=== PATIENT | male | born 1940 | race Caucasian/White ===

== ENCOUNTER 2019-12-04 08:58 | Inpatient (IN) ==
[2019-12-04] MEDS ORDERED: PIPERACILLIN/TAZOBACTAM 3,375 MG in SODIUM CHLORIDE 0.9% 100 ML IV STA (09:30)
[2019-12-04 10:21] LABS: Basophils % 0.3 % (0.0-0.8); Eosinophils # 0.1 10*3/uL (0.0-0.87); Eosinophils % 0.9 % (0.00-10.9); Hematocrit 34.2 VOL% (42.0-52.0); Hemoglobin 10.1 GM/DL (14.0-18.0); Immature Granulocytes % 0.8 %; Immature Granulocytes Absolute 0.09 #; Lymphocytes # 1.7 10*3/uL (1.4-4.0); Lymphocytes % 15.6 % (21.2-54.2); Mean Corpuscular HGB Conc 29.5 GM/DL (32-36); Mean Corpuscular Volume 84.9 FL (87-102); Mean Platelet Volume 8.2 FL (9.6-12.0); Monocytes % 6.9 % (1.7-12.7); Neutrophils % 75.5 % (38.7-73.9); Platelet Count 374 T/CUMM (130-400); Red Blood Count 4.03 MC/CUMM (3.8-5.5); Red Cell Distribution Width 14.8 % (9.3-17.3); White Blood Count 11.1 T/CUMM (4-12)
[2019-12-04 10:25] LABS: PT Patient Result 10.9 SECS (9.8-11.9)
[2019-12-04 10:35] LABS: Alanine Aminotransferase 19 U/L (16-61); Albumin 3.1 G/DL (3.4-5.0); Alkaline Phosphatase 98 U/L (45-117); Aspartate Amino Transferase 15 U/L (0-37); Bilirubin,Total < 0.39 MG/DL (0.2-1.0); Blood Urea Nitrogen 31 MG/DL (7-18); Calcium 9.9 MG/DL (8.5-10.1); Estimated Glom Filtration Rate 57 ML/MIN; Glucose 141 MG/DL (74-106); Osmolality,Calculated 283.7 MOS/KG (273-304); Total Protein 9.2 G/DL (6.4-8.3)
[2019-12-04 11:58] LABS: Apearance,Urine CLEAR (Clear); Bilirubin,Urine Negative (Negative); Blood, Urine Negative (Negative); Glucose,Urine (UA) Negative (Negative); Hyaline Casts,Urine 1 /LPF (0-3); Ketones,Urine Negative (Negative); Mucus,Urine Occasional /LPF (Occasional); Nitrite,Urine Negative (Negative); Protein,Urine Negative; RBC,Urine 6 /HPF (0-4); Squamous Epithelial Cell,Urine Occasional /HPF (0-10); Urine Color Yellow (Yellow); Urine Specific Gravity 1.016 (1.001-1.035); Urine Urobilinogen < 2.0 EU/DL (0.2-1.0); WBC,Urine <1 /HPF (0-6)
[2019-12-04] MEDS ORDERED: ACETAMINOPHEN 325 MG TABLET PO PRN (14:44)
[2019-12-04] MEDS ORDERED: GLUCAGON 1 MG VIAL IM PRN (14:44)
[2019-12-04] MEDS ORDERED: PROMETHAZINE 25 MG/1 ML VIAL IM PRN (14:44)
[2019-12-04] MEDS ORDERED: MAGNESIUM HYDROXIDE SUSP 30 ML UDCUP PO PRN (14:44)
[2019-12-04] MEDS ORDERED: ONDANSETRON 4 MG/2 ML VIAL IV PRN (14:44)
[2019-12-04] MEDS ORDERED: DEXTROSE 10% 250 ML BAG IV PRN (14:44)
[2019-12-04] MEDS: GABAPENTIN 300 MG CAPSULE PO SCH ×2 (15:56→21:01)
[2019-12-04] MEDS: PENTOXIFYLLINE 400 MG TABLET PO SCH ×2 (15:56→21:01)
[2019-12-04] MEDS: POLYVINYL ALCOHOL 1.4% OPH SOLN 15 ML BOTTLE BOTH EYES SCH ×2 (15:57→21:01)
[2019-12-04] MEDS: VANCOMYCIN INJ 1,250 MG in SODIUM CHLORIDE 0.9% 250 ML IV SCH (16:03)
[2019-12-04] MEDS: ASCORBIC ACID 500 MG TABLET PO SCH (21:00)
[2019-12-04] MEDS: carvediloL 12.5 MG TABLET PO SCH (21:00)
[2019-12-04] MEDS: DONEPEZIL 5 MG TABLET PO SCH (21:00)
[2019-12-04] MEDS: ATORVASTATIN 20 MG TABLET PO SCH (21:00)
[2019-12-04] MEDS: cilostazoL 50 MG TABLET PO SCH (21:01)
[2019-12-04] MEDS: DOCUSATE SODIUM 100 MG CAPSULE PO SCH (21:01)
[2019-12-04] MEDS: MELATONIN 3 MG TABLET PO SCH (21:01)
[2019-12-04] MEDS: PIPERACILLIN/TAZOBACTAM 3,375 MG in SODIUM CHLORIDE 0.9% 100 ML IV SCH (21:17)
[2019-12-05] MEDS: LACTATED RINGERS 1,000 ML IV SCH ×2 (00:29→09:29)
[2019-12-05] MEDS: VANCOMYCIN INJ 1,250 MG in SODIUM CHLORIDE 0.9% 250 ML IV SCH ×2 (03:34→17:07)
[2019-12-05] MEDS: PIPERACILLIN/TAZOBACTAM 3,375 MG in SODIUM CHLORIDE 0.9% 100 ML IV SCH ×3 (05:39→21:52)
[2019-12-05] MEDS ORDERED: LIDOCAINE 1%/EPI INJ 20 ML VIAL ONE (06:30)
[2019-12-05] MEDS ORDERED: BUPIVACAINE MPF 0.25% 30 ML VIAL ONE (06:30)
[2019-12-05] MEDS: ENOXAPARIN 40 MG/0.4 ML SYRINGE SUBCUT SCH (07:02)
[2019-12-05] MEDS ORDERED: PHENYLEPHRINE 1 MG/10 ML SYRINGE IV ONE (07:58)
[2019-12-05] MEDS ORDERED: SEVOFLURANE 1 UNIT/15 MINUTE INH ONE (07:58)
[2019-12-05] MEDS ORDERED: fentaNYL 100 MCG/2 ML VIAL ONE (07:58)
[2019-12-05] MEDS ORDERED: ETOMIDATE 40 MG/20 ML VIAL IV ONE (07:58)
[2019-12-05] MEDS ORDERED: propofoL 200 MG/20 ML VIAL IV ONE (07:58)
[2019-12-05] MEDS ORDERED: LIDOCAINE 1% 5 ML VIAL ONE (07:58)
[2019-12-05] MEDS ORDERED: DEXTROSE 10% 250 ML BAG IV PRN (08:43)
[2019-12-05] MEDS ORDERED: GLUCAGON 1 MG VIAL IM PRN (08:43)
[2019-12-05] MEDS: MULTIVITAMIN (CENTRUM) TABLET PO SCH (09:27)
[2019-12-05] MEDS: GABAPENTIN 300 MG CAPSULE PO SCH ×3 (09:27→21:50)
[2019-12-05] MEDS: cilostazoL 50 MG TABLET PO SCH ×2 (09:27→21:50)
[2019-12-05] MEDS: LACTULOSE 20 GM/30 ML UDCUP PO SCH (09:27)
[2019-12-05] MEDS: PENTOXIFYLLINE 400 MG TABLET PO SCH ×3 (09:27→21:55)
[2019-12-05] MEDS: ASPIRIN EC 81 MG TABLET PO SCH (09:28)
[2019-12-05] MEDS: PANTOPRAZOLE 40 MG TABLET PO SCH (09:28)
[2019-12-05] MEDS: TAMSULOSIN 0.4 MG CAPSULE PO SCH (09:28)
[2019-12-05] MEDS: DUTASTERIDE 0.5 MG CAPSULE PO SCH (09:28)
[2019-12-05] MEDS: DONEPEZIL 5 MG TABLET PO SCH ×2 (09:28→21:50)
[2019-12-05] MEDS: DOCUSATE SODIUM 100 MG CAPSULE PO SCH ×2 (09:28→21:50)
[2019-12-05] MEDS: ASCORBIC ACID 500 MG TABLET PO SCH ×2 (09:28→21:51)
[2019-12-05] MEDS: FERROUS SULFATE 325 MG TABLET PO SCH (09:28)
[2019-12-05] MEDS: carvediloL 12.5 MG TABLET PO SCH ×2 (09:28→21:49)
[2019-12-05] MEDS: POLYVINYL ALCOHOL 1.4% OPH SOLN 15 ML BOTTLE BOTH EYES SCH ×3 (09:29→22:08)
[2019-12-05] MEDS: INSULIN REGULAR 100 UNIT/ML SUBCUT SCH ×3 (12:45→22:08)
[2019-12-05] MEDS: MELATONIN 3 MG TABLET PO SCH (21:49)
[2019-12-05] MEDS: ATORVASTATIN 20 MG TABLET PO SCH (21:50)
[2019-12-06] MEDS: LACTATED RINGERS 1,000 ML IV SCH ×2 (01:07→13:20)
[2019-12-06] MEDS: VANCOMYCIN INJ 1,250 MG in SODIUM CHLORIDE 0.9% 250 ML IV SCH ×2 (04:12→16:28)
[2019-12-06] MEDS: PIPERACILLIN/TAZOBACTAM 3,375 MG in SODIUM CHLORIDE 0.9% 100 ML IV SCH ×3 (05:49→21:41)
[2019-12-06 05:54] LABS: Calcium 8.8 MG/DL (8.5-10.1); Osmolality,Calculated 286.5 MOS/KG (273-304)
[2019-12-06] MEDS: ENOXAPARIN 40 MG/0.4 ML SYRINGE SUBCUT SCH (06:03)
[2019-12-06] MEDS: HYDROmorphone 2 MG/1 ML VIAL IV PRN ×2 (08:09→12:57)
[2019-12-06] MEDS: carvediloL 12.5 MG TABLET PO SCH ×2 (08:46→21:24)
[2019-12-06] MEDS: TAMSULOSIN 0.4 MG CAPSULE PO SCH (08:46)
[2019-12-06] MEDS: PENTOXIFYLLINE 400 MG TABLET PO SCH ×3 (08:46→21:24)
[2019-12-06] MEDS: MULTIVITAMIN (CENTRUM) TABLET PO SCH (08:46)
[2019-12-06] MEDS: cilostazoL 50 MG TABLET PO SCH ×2 (08:46→21:24)
[2019-12-06] MEDS: ASPIRIN EC 81 MG TABLET PO SCH (08:46)
[2019-12-06] MEDS: DOCUSATE SODIUM 100 MG CAPSULE PO SCH ×2 (08:46→21:24)
[2019-12-06] MEDS: DONEPEZIL 5 MG TABLET PO SCH ×2 (08:47→21:24)
[2019-12-06] MEDS: DUTASTERIDE 0.5 MG CAPSULE PO SCH (08:47)
[2019-12-06] MEDS: LACTULOSE 20 GM/30 ML UDCUP PO SCH ×2 (08:47→08:58)
[2019-12-06] MEDS: INSULIN REGULAR 100 UNIT/ML SUBCUT SCH ×4 (08:47→21:25)
[2019-12-06] MEDS: PANTOPRAZOLE 40 MG TABLET PO SCH (08:47)
[2019-12-06] MEDS: FERROUS SULFATE 325 MG TABLET PO SCH (08:47)
[2019-12-06] MEDS: POLYVINYL ALCOHOL 1.4% OPH SOLN 15 ML BOTTLE BOTH EYES SCH ×3 (08:47→21:25)
[2019-12-06] MEDS: ASCORBIC ACID 500 MG TABLET PO SCH ×2 (08:47→21:26)
[2019-12-06] MEDS: GABAPENTIN 300 MG CAPSULE PO SCH ×3 (08:47→21:24)
[2019-12-06] MEDS: MELATONIN 3 MG TABLET PO SCH (21:24)
[2019-12-06] MEDS: ATORVASTATIN 20 MG TABLET PO SCH (21:24)
[2019-12-06] MEDS: INSULIN GLARGINE 100 UNIT/ML SUBCUT SCH (21:26)
[2019-12-07] MEDS: VANCOMYCIN INJ 1,250 MG in SODIUM CHLORIDE 0.9% 250 ML IV SCH ×2 (04:27→17:45)
[2019-12-07] MEDS: ENOXAPARIN 40 MG/0.4 ML SYRINGE SUBCUT SCH (06:15)
[2019-12-07] MEDS: PIPERACILLIN/TAZOBACTAM 3,375 MG in SODIUM CHLORIDE 0.9% 100 ML IV SCH ×3 (06:36→20:37)
[2019-12-07] MEDS: INSULIN REGULAR 100 UNIT/ML SUBCUT SCH ×4 (08:39→20:39)
[2019-12-07] MEDS: GABAPENTIN 300 MG CAPSULE PO SCH ×3 (08:40→20:38)
[2019-12-07] MEDS: ASPIRIN EC 81 MG TABLET PO SCH (08:40)
[2019-12-07] MEDS: PANTOPRAZOLE 40 MG TABLET PO SCH (08:40)
[2019-12-07] MEDS: DOCUSATE SODIUM 100 MG CAPSULE PO SCH ×2 (08:40→20:38)
[2019-12-07] MEDS: DUTASTERIDE 0.5 MG CAPSULE PO SCH (08:40)
[2019-12-07] MEDS: DONEPEZIL 5 MG TABLET PO SCH ×2 (08:40→20:38)
[2019-12-07] MEDS: MULTIVITAMIN (CENTRUM) TABLET PO SCH (08:40)
[2019-12-07] MEDS: FERROUS SULFATE 325 MG TABLET PO SCH (08:40)
[2019-12-07] MEDS: cilostazoL 50 MG TABLET PO SCH ×2 (08:40→20:38)
[2019-12-07] MEDS: ASCORBIC ACID 500 MG TABLET PO SCH ×2 (08:40→20:38)
[2019-12-07] MEDS: carvediloL 12.5 MG TABLET PO SCH ×2 (08:40→20:38)
[2019-12-07] MEDS: PENTOXIFYLLINE 400 MG TABLET PO SCH ×3 (08:40→20:38)
[2019-12-07] MEDS: LACTULOSE 20 GM/30 ML UDCUP PO SCH ×2 (08:40→08:54)
[2019-12-07] MEDS: POLYVINYL ALCOHOL 1.4% OPH SOLN 15 ML BOTTLE BOTH EYES SCH ×3 (08:41→20:38)
[2019-12-07] MEDS: TAMSULOSIN 0.4 MG CAPSULE PO SCH (08:42)
[2019-12-07] MEDS: MELATONIN 3 MG TABLET PO SCH (20:38)
[2019-12-07] MEDS: ATORVASTATIN 20 MG TABLET PO SCH (20:38)
[2019-12-07] MEDS: INSULIN GLARGINE 100 UNIT/ML SUBCUT SCH (20:39)
[2019-12-08 04:35] LABS: Basophils % 0.5 % (0.0-0.8); Eosinophils # 0.3 10*3/uL (0.0-0.87); Hemoglobin 8.6 GM/DL (14.0-18.0); Immature Granulocytes % 0.6 %; Immature Granulocytes Absolute 0.05 #; Lymphocytes # 2.1 10*3/uL (1.4-4.0); Mean Corpuscular HGB Conc 29.7 GM/DL (32-36); Mean Corpuscular Volume 84.3 FL (87-102); Mean Platelet Volume 8.2 FL (9.6-12.0); Monocytes % 7.9 % (1.7-12.7); Platelet Count 347 T/CUMM (130-400); Red Blood Count 3.44 MC/CUMM (3.8-5.5); Red Cell Distribution Width 14.8 % (9.3-17.3); White Blood Count 8.2 T/CUMM (4-12)
[2019-12-08] MEDS: VANCOMYCIN INJ 1,250 MG in SODIUM CHLORIDE 0.9% 250 ML IV SCH (04:38)
[2019-12-08 04:56] LABS: Calcium 8.6 MG/DL (8.5-10.1); Osmolality,Calculated 287.4 MOS/KG (273-304)
[2019-12-08] MEDS: ENOXAPARIN 40 MG/0.4 ML SYRINGE SUBCUT SCH (05:58)
[2019-12-08] MEDS: PIPERACILLIN/TAZOBACTAM 3,375 MG in SODIUM CHLORIDE 0.9% 100 ML IV SCH ×2 (06:34→15:33)
[2019-12-08] MEDS: MULTIVITAMIN (CENTRUM) TABLET PO SCH (09:48)
[2019-12-08] MEDS: ASPIRIN EC 81 MG TABLET PO SCH (09:48)
[2019-12-08] MEDS: TAMSULOSIN 0.4 MG CAPSULE PO SCH (09:48)
[2019-12-08] MEDS: DONEPEZIL 5 MG TABLET PO SCH (09:48)
[2019-12-08] MEDS: GABAPENTIN 300 MG CAPSULE PO SCH (09:48)
[2019-12-08] MEDS: ASCORBIC ACID 500 MG TABLET PO SCH (09:48)
[2019-12-08] MEDS: DOCUSATE SODIUM 100 MG CAPSULE PO SCH (09:48)
[2019-12-08] MEDS: PANTOPRAZOLE 40 MG TABLET PO SCH (09:49)
[2019-12-08] MEDS: carvediloL 12.5 MG TABLET PO SCH (09:49)
[2019-12-08] MEDS: cilostazoL 50 MG TABLET PO SCH (09:49)
[2019-12-08] MEDS: FERROUS SULFATE 325 MG TABLET PO SCH (09:49)
[2019-12-08] MEDS: DUTASTERIDE 0.5 MG CAPSULE PO SCH (09:49)
[2019-12-08] MEDS: LACTULOSE 20 GM/30 ML UDCUP PO SCH (09:54)
[2019-12-08] MEDS: INSULIN REGULAR 100 UNIT/ML SUBCUT SCH ×2 (09:55→13:34)
[2019-12-08] MEDS: POLYVINYL ALCOHOL 1.4% OPH SOLN 15 ML BOTTLE BOTH EYES SCH (09:57)
[2019-12-08] MEDS: PENTOXIFYLLINE 400 MG TABLET PO SCH (10:28)
[2019-12-08 12:09] VITALS: BP 149/71
[2019-12-08] MEDS: MAGNESIUM SULF RIDER 2 GM in PREMIX 1 EACH IV ONE ×2 (12:18→12:37)
== END 2019-12-08 15:31 | DRG 240 ==
LOC: EDBD → EDUNIT# → N.ED 08:58 → N.EDINP 11:39 → N.TELES 14:09
PROVIDERS: ADMIT Surgery; ATTEND Surgery

== ENCOUNTER 2020-04-10 06:01 | Inpatient (IN) ==
[2020-04-10 06:33] LABS: Basophils % 0.1 % (0.0-0.8); Hematocrit 32.8 VOL% (42.0-52.0); Hemoglobin 10.4 GM/DL (14.0-18.0); Immature Granulocytes % 0.7 %; Immature Granulocytes Absolute 0.07 #; Lymphocytes # 0.6 10*3/uL (1.4-4.0); Lymphocytes % 6.1 % (21.2-54.2); Mean Corpuscular HGB Conc 31.7 GM/DL (32-36); Mean Corpuscular Volume 83.9 FL (87-102); Mean Platelet Volume 8.6 FL (9.6-12.0); Monocytes % 5.6 % (1.7-12.7); Neutrophils % 87.5 % (38.7-73.9); Platelet Count 295 T/CUMM (130-400); Red Blood Count 3.91 MC/CUMM (3.8-5.5); Red Cell Distribution Width 14.7 % (9.3-17.3); White Blood Count 10.3 T/CUMM (4-12)
[2020-04-10 06:54] LABS: Band Neutrophils 6 % (0-10); Hypochromasia 1+; Lymphocytes 4 % (20-55); Platelet Estimate Adequate; Segmented Neutrophils 86 % (50-85); Total Cells Counted 100
[2020-04-10 07:02] LABS: Albumin 2.9 G/DL (3.4-5.0); Bilirubin,Total 0.6 MG/DL (0.2-1.0); Osmolality,Calculated 277.4 MOS/KG (273-304); Total Protein 8.6 G/DL (6.4-8.3)
[2020-04-10] MEDS ORDERED: SODIUM CHLORIDE 0.9% 1,000 ML IV STA (07:52)
[2020-04-10] MEDS ORDERED: MORPHINE 4 MG/1 ML VIAL IV PRN (08:47)
[2020-04-10] MEDS ORDERED: ONDANSETRON 4 MG/2 ML VIAL IV PRN (08:47)
[2020-04-10] MEDS ORDERED: GLUCAGON 1 MG VIAL IM PRN (08:47)
[2020-04-10] MEDS ORDERED: ACETAMINOPHEN 325 MG TABLET PO PRN (08:47)
[2020-04-10] MEDS ORDERED: DEXTROSE 50% 25 GM/50 ML VIAL IV PRN (08:47)
[2020-04-10] MEDS ORDERED: MAGNESIUM HYDROXIDE SUSP 30 ML UDCUP PO PRN (08:52)
[2020-04-10] MEDS ORDERED: ENOXAPARIN 100 MG/ML SYRINGE SUBCUT SCH (09:00)
[2020-04-10] MEDS ORDERED: TAMSULOSIN 0.4 MG CAPSULE PO SCH (09:00)
[2020-04-10] MEDS ORDERED: DONEPEZIL 10 MG TABLET PO SCH (09:00)
[2020-04-10] MEDS ORDERED: ESCITALOPRAM 10 MG TABLET PO SCH (09:00)
[2020-04-10] MEDS: AZITHROMYCIN INJ 500 MG in SODIUM CHLORIDE 0.9% 250 ML IV SCH (09:49)
[2020-04-10] MEDS: DUTASTERIDE 0.5 MG CAPSULE PO SCH (12:51)
[2020-04-10] MEDS: ASCORBIC ACID 500 MG TABLET PO SCH ×2 (12:52→21:30)
[2020-04-10] MEDS: carvediloL 12.5 MG TABLET PO SCH ×2 (12:52→21:30)
[2020-04-10] MEDS: DOCUSATE SODIUM 100 MG CAPSULE PO SCH ×2 (12:52→21:30)
[2020-04-10] MEDS: ZINC SULFATE 220 MG CAPSULE PO SCH (12:52)
[2020-04-10] MEDS: LACTULOSE 20 GM/30 ML UDCUP PO SCH (12:52)
[2020-04-10] MEDS: PANTOPRAZOLE 40 MG TABLET PO SCH (12:52)
[2020-04-10] MEDS: FERROUS SULFATE 325 MG TABLET PO SCH (12:52)
[2020-04-10] MEDS: MULTIVITAMIN (CENTRUM) TABLET PO SCH (12:52)
[2020-04-10] MEDS: PENTOXIFYLLINE 400 MG TABLET PO SCH ×3 (12:52→21:30)
[2020-04-10] MEDS: DEXAMETHASONE 10 MG/1 ML VIAL IV SCH (12:52)
[2020-04-10] MEDS: PIPERACILLIN/TAZOBACTAM 3,375 MG in SODIUM CHLORIDE 0.9% 100 ML IV SCH ×2 (12:53→20:05)
[2020-04-10] MEDS: INSULIN REGULAR 100 UNIT/ML SUBCUT SCH ×3 (12:53→21:30)
[2020-04-10] MEDS: ALBUTEROL INHALER 18 GM INH SCH ×2 (13:13→18:30)
[2020-04-10] MEDS ORDERED: fentaNYL 12 MCG/HR PATCH TRANSDERM SCH (15:00)
[2020-04-10] MEDS: POLYVINYL ALCOHOL 1.4% OPH SOLN 15 ML BOTTLE BOTH EYES SCH ×2 (16:27→21:30)
[2020-04-10] MEDS ORDERED: ATORVASTATIN 20 MG TABLET PO SCH (21:00)
[2020-04-10] MEDS ORDERED: MELATONIN 3 MG TABLET PO SCH (21:00)
[2020-04-10] MEDS ORDERED: INSULIN GLARGINE 100 UNIT/ML SUBCUT SCH (21:00)
[2020-04-10] MEDS: TAMSULOSIN 0.4 MG CAPSULE PO SCH (21:30)
[2020-04-11] MEDS: ALBUTEROL INHALER 18 GM INH SCH ×3 (01:20→13:29)
[2020-04-11] MEDS: PIPERACILLIN/TAZOBACTAM 3,375 MG in SODIUM CHLORIDE 0.9% 100 ML IV SCH ×2 (03:00→12:50)
[2020-04-11 05:39] LABS: Basophils % 0.1 % (0.0-0.8); Hematocrit 32.9 VOL% (42.0-52.0); Hemoglobin 10.2 GM/DL (14.0-18.0); Immature Granulocytes % 0.5 %; Immature Granulocytes Absolute 0.09 #; Lymphocytes # 0.6 10*3/uL (1.4-4.0); Lymphocytes % 3.9 % (21.2-54.2); Mean Corpuscular Volume 84.8 FL (87-102); Mean Platelet Volume 8.4 FL (9.6-12.0); Monocytes % 3.4 % (1.7-12.7); Neutrophils % 92.1 % (38.7-73.9); Platelet Count 258 T/CUMM (130-400); Red Blood Count 3.88 MC/CUMM (3.8-5.5); Red Cell Distribution Width 14.6 % (9.3-17.3); White Blood Count 16.5 T/CUMM (4-12)
[2020-04-11 06:03] LABS: Albumin 2.4 G/DL (3.4-5.0); Bilirubin,Total 0.5 MG/DL (0.2-1.0); Calcium 8.8 MG/DL (8.5-10.1); Osmolality,Calculated 291.7 MOS/KG (273-304); Total Protein 7.7 G/DL (6.4-8.3)
[2020-04-11 06:06] LABS: Band Neutrophils 16 % (0-10); Lymphocytes 3 % (20-55); Segmented Neutrophils 77 % (50-85); Total Cells Counted 100
[2020-04-11 06:07] LABS: Hypochromasia 1+; Microcytosis Slight; Ovalocytes Slight; Platelet Estimate Normal
[2020-04-11] MEDS: AZITHROMYCIN INJ 500 MG in SODIUM CHLORIDE 0.9% 250 ML IV SCH (08:39)
[2020-04-11] MEDS: INSULIN REGULAR 100 UNIT/ML SUBCUT SCH ×2 (08:39→12:50)
[2020-04-11] MEDS: DEXAMETHASONE 10 MG/1 ML VIAL IV SCH (08:40)
[2020-04-11] MEDS ORDERED: ENOXAPARIN 40 MG/0.4 ML SYRINGE SUBCUT SCH (09:00)
[2020-04-11] MEDS: LACTULOSE 20 GM/30 ML UDCUP PO SCH (10:10)
[2020-04-11] MEDS: DOCUSATE SODIUM 100 MG CAPSULE PO SCH (10:10)
[2020-04-11] MEDS: POLYVINYL ALCOHOL 1.4% OPH SOLN 15 ML BOTTLE BOTH EYES SCH ×2 (10:10→15:57)
[2020-04-11] MEDS: carvediloL 12.5 MG TABLET PO SCH (10:35)
[2020-04-11] MEDS: DUTASTERIDE 0.5 MG CAPSULE PO SCH (10:35)
[2020-04-11] MEDS: MULTIVITAMIN (CENTRUM) TABLET PO SCH (10:35)
[2020-04-11] MEDS: FERROUS SULFATE 325 MG TABLET PO SCH (10:35)
[2020-04-11] MEDS: TAMSULOSIN 0.4 MG CAPSULE PO SCH (10:36)
[2020-04-11] MEDS: ZINC SULFATE 220 MG CAPSULE PO SCH (10:36)
[2020-04-11] MEDS: ASCORBIC ACID 500 MG TABLET PO SCH (10:36)
[2020-04-11] MEDS: PANTOPRAZOLE 40 MG TABLET PO SCH (10:36)
[2020-04-11] MEDS: PENTOXIFYLLINE 400 MG TABLET PO SCH ×2 (10:36→15:57)
[2020-04-11 11:44] VITALS: BP 142/56
[2020-04-12] MEDS ORDERED: fentaNYL 12 MCG/HR PATCH TRANSDERM SCH (09:00)
== END 2020-04-11 15:56 | DRG 177 ==
LOC: EDUNIT# → EDBD → N.ED 06:01 → N.EDINP 08:47 → N.2E 10:26
PROVIDERS: ADMIT Internal Medicine; ATTEND Internal Medicine

== ENCOUNTER 2020-04-17 08:58 | Inpatient (IN) ==
[2020-04-17 11:22] LABS: Basophils % 0.2 % (0.0-0.8); Eosinophils % 0.1 % (0.00-10.9); Hematocrit 49.5 VOL% (42.0-52.0); Hemoglobin 15.6 GM/DL (14.0-18.0); Immature Granulocytes % 1.6 %; Immature Granulocytes Absolute 0.13 #; Lymphocytes # 0.8 10*3/uL (1.4-4.0); Mean Corpuscular HGB Conc 31.5 GM/DL (32-36); Mean Corpuscular Volume 82.2 FL (87-102); Mean Platelet Volume 8.6 FL (9.6-12.0); Monocytes % 4.4 % (1.7-12.7); Neutrophils % 83.7 % (38.7-73.9); Platelet Count 365 T/CUMM (130-400); Red Blood Count 6.02 MC/CUMM (3.8-5.5); White Blood Count 8.2 T/CUMM (4-12)
[2020-04-17 11:45] LABS: Alanine Aminotransferase 77 U/L (16-61); Albumin 2.4 G/DL (3.4-5.0); Alkaline Phosphatase 103 U/L (45-117); Aspartate Amino Transferase 58 U/L (0-37); Blood Urea Nitrogen 34 MG/DL (7-18); Calcium 9.5 MG/DL (8.5-10.1); Carbon Dioxide 23 MMOL/L (21-32); Estimated Glom Filtration Rate 77 ML/MIN; Glucose 117 MG/DL (74-106); Osmolality,Calculated 285.5 MOS/KG (273-304); Potassium 4.4 MMOL/L (3.5-5.1); Sodium 139 MMOL/L (136-145); Total Protein 8.2 G/DL (6.4-8.3)
[2020-04-17] MEDS ORDERED: ACETAMINOPHEN 325 MG TABLET PO PRN (13:36)
[2020-04-17] MEDS ORDERED: ONDANSETRON 4 MG/2 ML VIAL IV PRN (13:36)
[2020-04-17] MEDS ORDERED: BISACODYL 5 MG TABLET PO PRN (13:36)
[2020-04-17] MEDS ORDERED: DOCUSATE SODIUM 100 MG CAPSULE PO PRN (13:36)
[2020-04-17] MEDS ORDERED: GLUCAGON 1 MG VIAL IM PRN (13:36)
[2020-04-17] MEDS ORDERED: DEXTROSE 50% 25 GM/50 ML VIAL IV PRN (13:36)
[2020-04-17] MEDS ORDERED: guaiFENesin/DM ER 600-30 MG TABLET PO PRN (13:36)
[2020-04-17] MEDS: PIPERACILLIN/TAZOBACTAM 3,375 MG in SODIUM CHLORIDE 0.9% 100 ML IV SCH ×2 (14:00→21:58)
[2020-04-17] MEDS ORDERED: SODIUM CHLORIDE 0.9% 1,000 ML IV SCH (14:00)
[2020-04-17] MEDS: ENOXAPARIN 40 MG/0.4 ML SYRINGE SUBCUT SCH (14:03)
[2020-04-17] MEDS: DEXAMETHASONE 10 MG/1 ML VIAL IV SCH (14:05)
[2020-04-17] MEDS: DEXTROSE 5% NACL 0.45% 1,000 ML IV SCH (16:10)
[2020-04-17] MEDS: INSULIN LISPRO 100 UNIT/ML SUBCUT SCH ×2 (16:22→20:21)
[2020-04-18] MEDS: DEXTROSE 5% NACL 0.45% 1,000 ML IV SCH ×3 (05:15→22:09)
[2020-04-18] MEDS: PIPERACILLIN/TAZOBACTAM 3,375 MG in SODIUM CHLORIDE 0.9% 100 ML IV SCH ×3 (06:16→22:12)
[2020-04-18 06:28] LABS: Basophils % 0.1 % (0.0-0.8); Hematocrit 33.9 VOL% (42.0-52.0); Immature Granulocytes % 1.1 %; Immature Granulocytes Absolute 0.11 #; Lymphocytes # 0.8 10*3/uL (1.4-4.0); Lymphocytes % 8.1 % (21.2-54.2); Mean Corpuscular HGB Conc 29.8 GM/DL (32-36); Mean Corpuscular Volume 86.7 FL (87-102); Mean Platelet Volume 8.6 FL (9.6-12.0); Monocytes % 3.8 % (1.7-12.7); Neutrophils % 86.9 % (38.7-73.9); Platelet Count 413 T/CUMM (130-400); Red Cell Distribution Width 14.9 % (9.3-17.3); White Blood Count 10.4 T/CUMM (4-12)
[2020-04-18 06:42] LABS: Hemoglobin 10.1 GM/DL (14.0-18.0); Red Blood Count 3.91 MC/CUMM (3.8-5.5)
[2020-04-18 06:52] LABS: Albumin 1.9 G/DL (3.4-5.0); Bilirubin,Total 0.5 MG/DL (0.2-1.0); Osmolality,Calculated 280.8 MOS/KG (273-304); Potassium 3.5 MMOL/L (3.5-5.1); Risk Ratio 2.49; Thyroid Stimulating Hormone 0.847 uIU/ml (0.358-3.74); Total Protein 7.9 G/DL (6.4-8.3); VLDL CHOLESTEROL 12.8 MG/DL
[2020-04-18] MEDS ORDERED: SKIN HEALING OINT (AQUAPHOR) 50 GM TUBE TOP PRN (09:19)
[2020-04-18] MEDS: INSULIN LISPRO 100 UNIT/ML SUBCUT SCH ×4 (09:50→22:10)
[2020-04-18] MEDS: PANTOPRAZOLE 40 MG TABLET PO SCH (09:51)
[2020-04-18] MEDS: DEXAMETHASONE 10 MG/1 ML VIAL IV SCH (09:51)
[2020-04-18] MEDS ORDERED: REMDESIVIR 200 MG in SODIUM CHLORIDE 0.9% 210 ML IV ONE (14:00)
[2020-04-18] MEDS: PENTOXIFYLLINE 400 MG TABLET PO SCH ×2 (16:33→22:11)
[2020-04-18] MEDS: ENOXAPARIN 40 MG/0.4 ML SYRINGE SUBCUT SCH (16:33)
[2020-04-18] MEDS: carvediloL 12.5 MG TABLET PO SCH (22:09)
[2020-04-18] MEDS: DONEPEZIL 5 MG TABLET PO SCH (22:09)
[2020-04-18] MEDS: ATORVASTATIN 20 MG TABLET PO SCH (22:10)
[2020-04-18] MEDS: MELATONIN 3 MG TABLET PO SCH (22:11)
[2020-04-18] MEDS: cilostazoL 50 MG TABLET PO SCH (22:11)
[2020-04-18] MEDS: ASCORBIC ACID 500 MG TABLET PO SCH (22:11)
[2020-04-19] MEDS: DEXTROSE 5% NACL 0.45% 1,000 ML IV SCH ×3 (02:20→21:50)
[2020-04-19 05:59] LABS: Basophils % 0.1 % (0.0-0.8); Eosinophils % 0.2 % (0.00-10.9); Hematocrit 29.2 VOL% (42.0-52.0); Hemoglobin 9.3 GM/DL (14.0-18.0); Immature Granulocytes % 1.2 %; Immature Granulocytes Absolute 0.13 #; Lymphocytes # 0.9 10*3/uL (1.4-4.0); Lymphocytes % 8.2 % (21.2-54.2); Mean Corpuscular HGB Conc 31.8 GM/DL (32-36); Mean Platelet Volume 8.7 FL (9.6-12.0); Monocytes % 3.5 % (1.7-12.7); Neutrophils % 86.8 % (38.7-73.9); Platelet Count 441 T/CUMM (130-400); Red Blood Count 3.56 MC/CUMM (3.8-5.5); Red Cell Distribution Width 14.5 % (9.3-17.3); White Blood Count 10.8 T/CUMM (4-12)
[2020-04-19 06:18] LABS: Albumin 1.9 G/DL (3.4-5.0); Bilirubin,Total 0.7 MG/DL (0.2-1.0); Calcium 8.4 MG/DL (8.5-10.1); Osmolality,Calculated 283.7 MOS/KG (273-304); Potassium 3.2 MMOL/L (3.5-5.1); Total Protein 7.1 G/DL (6.4-8.3)
[2020-04-19] MEDS: PIPERACILLIN/TAZOBACTAM 3,375 MG in SODIUM CHLORIDE 0.9% 100 ML IV SCH ×3 (06:49→21:50)
[2020-04-19] MEDS ORDERED: LORATADINE 10 MG TABLET PO SCH (09:00)
[2020-04-19] MEDS ORDERED: REMDESIVIR 100 MG in SODIUM CHLORIDE 0.9% 230 ML IV SCH (09:00)
[2020-04-19] MEDS ORDERED: FERROUS SULFATE 325 MG TABLET PO SCH (09:00)
[2020-04-19] MEDS ORDERED: ASPIRIN CHEW 81 MG TABLET PO SCH (09:00)
[2020-04-19] MEDS ORDERED: ESCITALOPRAM 10 MG TABLET PO SCH (09:00)
[2020-04-19] MEDS ORDERED: CHOLECALCIFEROL 1,000 UNIT TABLET PO SCH (09:00)
[2020-04-19] MEDS ORDERED: ZINC SULFATE 220 MG CAPSULE PO SCH ×2 (09:00)
[2020-04-19] MEDS ORDERED: TAMSULOSIN 0.4 MG CAPSULE PO SCH (09:00)
[2020-04-19] MEDS ORDERED: LACTULOSE 20 GM/30 ML UDCUP PO SCH (09:00)
[2020-04-19] MEDS: INSULIN LISPRO 100 UNIT/ML SUBCUT SCH ×4 (09:16→21:52)
[2020-04-19] MEDS: DEXAMETHASONE 10 MG/1 ML VIAL IV SCH (09:16)
[2020-04-19] MEDS ORDERED: MAGNESIUM SULF RIDER 2 GM in PREMIX 1 EACH IV ONE (09:49)
[2020-04-19] MEDS: carvediloL 12.5 MG TABLET PO SCH ×2 (10:14→21:50)
[2020-04-19] MEDS: DONEPEZIL 5 MG TABLET PO SCH ×2 (10:14→21:50)
[2020-04-19] MEDS: cilostazoL 50 MG TABLET PO SCH ×2 (10:15→21:50)
[2020-04-19] MEDS: PENTOXIFYLLINE 400 MG TABLET PO SCH ×3 (10:15→21:50)
[2020-04-19] MEDS: PANTOPRAZOLE 40 MG TABLET PO SCH (10:15)
[2020-04-19] MEDS: ASCORBIC ACID 500 MG TABLET PO SCH ×2 (10:15→21:50)
[2020-04-19] MEDS: ENOXAPARIN 40 MG/0.4 ML SYRINGE SUBCUT SCH (14:46)
[2020-04-19] MEDS: ATORVASTATIN 20 MG TABLET PO SCH (21:50)
[2020-04-19] MEDS: MELATONIN 3 MG TABLET PO SCH (21:50)
[2020-04-20] MEDS: DEXTROSE 5% NACL 0.45% 1,000 ML IV SCH (02:26)
[2020-04-20 05:30] VITALS: BP 141/54
[2020-04-20] MEDS: PIPERACILLIN/TAZOBACTAM 3,375 MG in SODIUM CHLORIDE 0.9% 100 ML IV SCH (06:09)
[2020-04-20 06:20] LABS: Basophils % 0.1 % (0.0-0.8); Eosinophils % 0.1 % (0.00-10.9); Hematocrit 32.5 VOL% (42.0-52.0); Hemoglobin 10.2 GM/DL (14.0-18.0); Immature Granulocytes % 1.1 %; Immature Granulocytes Absolute 0.18 #; Lymphocytes # 1.1 10*3/uL (1.4-4.0); Lymphocytes % 6.5 % (21.2-54.2); Mean Corpuscular HGB Conc 31.4 GM/DL (32-36); Mean Corpuscular Volume 82.7 FL (87-102); Mean Platelet Volume 8.7 FL (9.6-12.0); Monocytes % 3.1 % (1.7-12.7); Neutrophils % 89.1 % (38.7-73.9); Platelet Count 463 T/CUMM (130-400); Red Blood Count 3.93 MC/CUMM (3.8-5.5); Red Cell Distribution Width 14.8 % (9.3-17.3); White Blood Count 16.1 T/CUMM (4-12)
[2020-04-20 06:22] LABS: Bilirubin,Total 0.6 MG/DL (0.2-1.0); Calcium 8.7 MG/DL (8.5-10.1); Osmolality,Calculated 278.1 MOS/KG (273-304); Potassium 3.3 MMOL/L (3.5-5.1); Total Protein 7.7 G/DL (6.4-8.3)
[2020-04-20 06:48] LABS: ABG Base Excess -11.2 MMOL/L (-2.5-2.5); ABG HCO3 15.3 MMOL/L (20-26); ABG Oxygen Saturation 78.1 % (95-100); ABG PH 7.414 (7.35-7.45); ABG PO2 48.7 MM HG (80-95); ABG TCO2 10.9 MMOL/L (23-27)
[2020-04-20 06:49] LABS: ABG PCO2 18.7 MM HG (35-48)
[2020-04-20] MEDS ORDERED: VECURONIUM 10 MG VIAL IV ONE (06:51)
[2020-04-20] MEDS ORDERED: ETOMIDATE 20 MG/10 ML VIAL IV ONE (06:51)
[2020-04-20] MEDS ORDERED: DOPamine 800 MG/250 ML PREMIX IV ONE (07:27)
[2020-04-20] MEDS ORDERED: ENOXAPARIN 80 MG/0.8 ML SYRINGE SUBCUT ONE (07:41)
[2020-04-20] MEDS ORDERED: PHENYLEPHRINE DRIP 40 MG/250 ML PREMIX IV PRN (07:41)
[2020-04-20] MEDS ORDERED: DOPamine 800 MG/250 ML PREMIX IV PRN (07:41)
[2020-04-20] MEDS ORDERED: PHENYLEPHRINE DRIP 40 MG/250 ML PREMIX IV ONE (07:42)
== END 2020-04-20 08:23 | disposition expired | DRG 177 ==
LOC: EDBD → EDUNIT# → N.ED 08:58 → N.EDINP 13:36 → SUATTDRO 13:36 → N.2E 14:55 → N.CC 04-20 06:36
PROVIDERS: ADMIT Internal Medicine; ATTEND Internal Medicine